=== PATIENT | male | born 1980 | race Caucasian/White ===

== ENCOUNTER 2025-04-05 13:50 | Outpatient (CLI) | payer BC | END 2025-04-05 13:51 | disposition home or self-care (01) | LOC: CSHLAB 13:50 | PROVIDERS: ATTEND Surgery | DX: Z01.818 Encounter for other preprocedural examination (principal); K43.9 Ventral hernia without obstruction or gangrene; R94.31 Abnormal electrocardiogram [ECG] [EKG] | CPT/HCPCS: 93005; 93010 ==